=== PATIENT | male | born 1960 | race Two or more races ===

== ENCOUNTER 2016-07-27 10:39 | Emergency (ER) | payer OTHER ==
[2016-07-27 11:17] VITALS: BP 132/80
--- NOTE | 2016-07-27 11:43 | UC ---
Dental HPI - HPI Summary HPI Summary: Patient has had increase pain on the left upper jaw for about 1 week. He now has pain up under his left eye and running down to the left ear. Has had multiple teeth pulled on the left side of his jaw. - History of Current Complaint Chief Complaint: UCDentalProblem Stated Complaint: DENTAL PAIN Time Seen by Provider: 07/27/16 11:30 Hx Obtained From: Patient Onset/Duration: Sudden Onset, Lasting Days Severity: Moderate Aggravating: Chewing - Allergies/Home Medications Allergies/Adverse Reactions: Allergies Allergy/AdvReac Type Severity Reaction Status Date / Time No Known Allergies Allergy Verified 09/05/14 09:54 PMH/Surg Hx/FS Hx/Imm Hx Previously Healthy: Yes Endocrine History Of: Denies: Diabetes, Thyroid Disease Cardiovascular History Of: Denies: Cardiac Disorders, Hypertension Respiratory History Of: Denies: COPD, Asthma GI/ History Of: Denies: Ulcer - Surgical History Surgical History: Yes Surgery Procedure, Year, and Place: Cataract Surgery - Family History Known Family History: Positive: None - Social History Alcohol Use: Occasionally Substance Use Type: None Smoking Status (MU): Never Smoked Tobacco Review of Systems Skin: Negative Eyes: Negative ENT: Dental Pain, Ear Ache Respiratory: Negative Cardiovascular: Negative Gastrointestinal: Negative Genitourinary: Negative Motor: Negative Neurovascular: Negative Musculoskeletal: Negative Neurological: Headache Psychological: Negative All Other Systems Reviewed And Are Negative: Yes Physical Exam Triage Information Reviewed: Yes Appearance: Well-Appearing, Well-Nourished, Pain Distress Vital Signs: Initial Vital Signs Temp 98.2 F 07/27/16 11:12 Pulse 56 07/27/16 11:12 Resp 18 07/27/16 11:12 BP 132/80 07/27/16 11:12 Pulse Ox 98 07/27/16 11:12 Vital Signs Reviewed: Yes Eye Exam: Normal Eyes: Positive: Conjunctiva Clear Dental: Positive: Gross Decay/Caries @, Dental Fracture @, Other: - upper left jaw is red and inflammed, swollen gums, deep socket noted with a fracutred tooth. breath is odorous Neck exam: Normal Neck: Positive: Supple, Nontender, Enlarged Nodes @ - behind left ear Respiratory Exam: Normal Respiratory: Positive: Chest non-tender, Lungs clear, Normal breath sounds Cardiovascular Exam: Normal Cardiovascular: Positive: RRR, No Murmur, Pulses Normal Abdominal Exam: Normal Abdomen Description: Positive: Nontender, No Organomegaly, Soft Bowel Sounds: Positive: Present Musculoskeletal Exam: Normal Musculoskeletal: Positive: Strength Intact, ROM Intact, No Edema Neurological Exam: Normal Neurological: Positive: Alert, Muscle Tone Normal Psychological Exam: Normal Skin Exam: Normal Dental Complaint Course/Dx - Course Course Of Treatment: Hx obtained, exam performed, meds reviewed, treated for dental infection. recommend dental follow up with his dentist. - Differential Dx/Diagnosis Differential Diagnosis/Dx: Dental Abscess, Dental Caries, Fractured Tooth, Peridontic Disease Provider Diagnoses: dental caries, infected socket, mouth pain Discharge - Discharge Plan Condition: Stable Disposition: HOME Prescriptions: Amoxicillin/Clavulanate TAB* [Augmentin TAB 875*] 875 mg PO BID #20 tab Patient Education Materials: Dental Abscess (ED) Additional Instructions: Take the medication as prescribed. Continue with Ibuprofen for pain. Follow upw ith dentis in the next 2 weeks. Return if you develope any fever or increased pain.
== END 2016-07-27 11:56 | disposition home or self-care (01) ==
LOC: UCEAST 10:39
DX: K02.9 Dental caries, unspecified (principal); M27.3 Alveolitis of jaws; K13.79 Other lesions of oral mucosa; R03.0 Elevated blood-pressure reading, without diagnosis of hypertension
CPT/HCPCS: 99212; G0463

== ENCOUNTER 2016-10-16 12:01 | Emergency (ER) | payer OTHER ==
[2016-10-16 12:08] VITALS: BP 122/81
--- NOTE | 2016-10-16 14:23 | UC ---
Lower Extremity/Ankle HPI - HPI Summary HPI Summary: While mowing yesterday noticed pain and swelling in L ankle, "like I sprained my ankle," and has small open area with some redness around it. Thought maybe something came off when he brushed the area. 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 Now notices other open areas on L knee (scratched off a scab), L shoulder, and scalp. no known ticks or stings. - History of Current Complaint Chief Complaint: UCSkin Stated Complaint: TICK BITE Time Seen by Provider: 10/16/16 14:06 Hx Obtained From: Patient Onset/Duration: Gradual Onset, Lasting Hours Severity Initially: Mild Severity Currently: Mild Aggravating Factor(s): Standing, Ambulation Alleviating Factor(s): Rest Able to Bear Weight: Yes - Allergies/Home Medications Allergies/Adverse Reactions: Allergies Allergy/AdvReac Type Severity Reaction Status Date / Time No Known Allergies Allergy Verified 10/16/16 12:07 PMH/Surg Hx/FS Hx/Imm Hx Previously Healthy: Yes - Surgical History Surgical History: Yes Surgery Procedure, Year, and Place: Cataract Surgery - Family History Known Family History: Positive: None - Social History Occupation: Employed Full-time Alcohol Use: None Substance Use Type: None Smoking Status (MU): Never Smoked Tobacco Review of Systems Constitutional: Negative Skin: Other - swelling, open areas Eyes: Negative ENT: Negative Respiratory: Negative Cardiovascular: Negative Gastrointestinal: Negative Genitourinary: Negative Motor: Negative Neurovascular: Negative Musculoskeletal: Negative Neurological: Negative Psychological: Negative All Other Systems Reviewed And Are Negative: Yes Physical Exam Triage Information Reviewed: Yes Appearance: Well-Appearing, No Pain Distress, Thin Vital Signs: Initial Vital Signs Temp 99.2 F 10/16/16 12:05 Pulse 60 10/16/16 12:05 Resp 16 10/16/16 12:05 BP 122/81 10/16/16 12:05 Pulse Ox 100 10/16/16 12:05 Vital Signs Reviewed: Yes Eye Exam: Normal Eyes: Positive: Conjunctiva Clear ENT Exam: Normal ENT: Positive: Normal ENT inspection, Hearing grossly normal, Pharynx normal, TMs normal Dental Exam: Normal Neck exam: Normal Neck: Positive: Supple, Nontender, No Lymphadenopathy Respiratory Exam: Normal Respiratory: Positive: Chest non-tender, Lungs clear, Normal breath sounds, No respiratory distress, No accessory muscle use Cardiovascular Exam: Normal Cardiovascular: Positive: RRR, No Murmur Musculoskeletal Exam: Normal Musculoskeletal: Positive: Strength Intact, ROM Intact Neurological Exam: Normal Neurological: Positive: Alert Psychological Exam: Normal Skin Exam: Other - 4 round open areas 3-5mm on L lateral ankle, L knee, L posterior shoulder, and scalp. No streaking, bruising, or drainage. Minimal diffuse redness around L ankle lesion only, with marked swelling in that area as well. Lower Extremity Course/Dx - Differential Dx/Diagnosis Provider Diagnoses: Insect bites. Large local reaction to bite on L ankle Discharge - Discharge Plan Condition: Stable Disposition: HOME Prescriptions: predniSONE TAB* [Deltasone TAB*] 20 mg PO BID #4 tab Patient Education Materials: Insect Bite or Sting (ED) Referrals: No Primary Care Phys,NOPCP [Primary Care Provider] - Additional Instructions: The redness, swelling, and pain in your ankle should go down quickly with the prednisone. If you have increasing pain, redness, streaking up the leg, or other signs of worsening, please call and leave me a message (or return any time we are open).
== END 2016-10-16 14:38 | disposition home or self-care (01) ==
LOC: UCEAST 12:01
DX: S90.562A Insect bite (nonvenomous), left ankle, initial encounter (principal); W57.XXXA Bitten or stung by nonvenomous insect and other nonvenomous arthropods, initial encounter; Y93.9 Activity, unspecified; Y92.9 Unspecified place or not applicable; Y99.9 Unspecified external cause status
CPT/HCPCS: 99212; G0463

== ENCOUNTER 2017-08-25 07:07 | Emergency (ER) | payer OTHER ==
[2017-08-25 07:20] VITALS: BP 141/85
--- NOTE | 2017-08-25 08:07 | RAD ---
INDICATION: Cough COMPARISON: None TECHNIQUE: PA and lateral views of the chest were obtained. FINDINGS: The heart and mediastinum are normal in size and contour. The lungs are grossly clear. There is no evidence of large pleural effusion. Visualized bones are normal for the patient's age. There is no radiographic evidence of free air beneath the diaphragm IMPRESSION: No radiographic evidence of acute cardiopulmonary disease.
--- NOTE | 2017-08-25 12:14 | UC ---
Srini Luong Angela, scribed for Jose Kelley MD on 08/25/17 at 0738 . Respiratory Complaint HPI - HPI Summary HPI Summary: This pt is a 56 y/o male presenting to [facility] c/o intermittent productive cough for the last 6 months. 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 He describes productive cough with yellow/ green sputum. He notes these episodes are worse especially in the morning and they get better throughout the day. Denies fever, chills, chest pain, SOB. Denies any PMHx. - History of Current Complaint Chief Complaint: UCGeneralIllness Stated Complaint: COUGH,FEVER Time Seen by Provider: 08/25/17 07:09 Hx Obtained From: Patient Onset/Duration: Lasting Weeks, Still Present Timing: Intermittent Episodes Severity Currently: Moderate Pain Intensity: 0 Character: Cough: Productive, Sputum Description: - yellow/green Aggravating Factors: Other - being outside Alleviating Factors: Nothing Associated Signs And Symptoms: Negative: Fever, Chills - Allergies/Home Medications Allergies/Adverse Reactions: Allergies Allergy/AdvReac Type Severity Reaction Status Date / Time No Known Allergies Allergy Verified 08/25/17 07:20 PMH/Surg Hx/FS Hx/Imm Hx Other Endocrine History: DENIES: diabetes Other Cardiovascular History: DENIES: HTN - Surgical History Surgical History: Yes Surgery Procedure, Year, and Place: Cataract Surgery - Family History Known Family History: Negative: Cardiac Disease, Hypertension, Diabetes - Social History Alcohol Use: Occasionally Substance Use Type: None Smoking Status (MU): Never Smoked Tobacco - Immunization History Most Recent Tetanus Shot: UNK Review of Systems Constitutional: Negative Skin: Negative Eyes: Negative ENT: Negative Respiratory: Cough Cardiovascular: Negative Gastrointestinal: Negative Genitourinary: Negative Motor: Negative Neurovascular: Negative Musculoskeletal: Negative Neurological: Negative Psychological: Negative Is Patient Immunocompromised?: No All Other Systems Reviewed And Are Negative: Yes Physical Exam - Summary Physical Exam Summary: VITAL SIGNS: Reviewed. GENERAL: Patient is a well-developed and nourished male who is lying comfortable in the stretcher. Patient is not in any acute respiratory distress. HEAD AND FACE: Normocephalic EYES: PERRLA, EOMI x 2. EARS: Hearing grossly intact. MOUTH: Oropharynx within normal limits. NECK: Supple, trachea is midline, no adenopathy, no JVD, no carotid bruit. CHEST: Symmetric, no tenderness at palpation LUNGS: Clear to auscultation bilaterally. No wheezing or crackles. CVS: Regular rate and rhythm, S1 and S2 present, no murmurs or gallops appreciated. ABDOMEN: Soft, non-tender. Bowel sounds are normal. No abdominal abnormal pulsations. EXTREMITIES: Full ROM in all major joints, no edema, no cyanosis or clubbing. NEURO: Alert and oriented x 3. No acute neurological deficits. Speech is normal and follows commands. SKIN: Dry and warm Triage Information Reviewed: Yes Vital Signs: Initial Vital Signs Temp 98.2 F 08/25/17 07:15 Pulse 69 08/25/17 07:15 Resp 18 08/25/17 07:15 BP 141/85 08/25/17 07:15 Pulse Ox 98 08/25/17 07:15 Vital Signs Reviewed: Yes Diagnostic Evaluation - Laboratory O2 Sat by Pulse Oximetry: 98 - Radiology Xray Interpretation: No Acute Changes - Chest XR IMPRESSION: no radiographic evidence of acute cardiopulmonary disease. Dr. Kelley has reviewed this radiology report. Radiology Interpretation Completed By: Radiologist Re-Evaluation - Re-Evaluation First Eval Re-Evaluation Time: 08:07 Comment: I reviewed the XR results with the pt. He will be discharged home. Respiratory Course/Dx - Course Course Of Treatment: This pt is a 56 y/o male presenting to [facility] c/o intermittent productive cough for the last 6 months. 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 He describes productive cough with yellow/green sputum. He notes these episodes are worse especially in the morning and they get better throughout the day. Denies fever, chills, chest pain, SOB. Chest XR shows no radiographic evidence of acute cardiopulmonary disease. I discussed the XR results with the patient. Pt will be discharged to home with follow up from PCP. He will be given a prescription for Azithromycin. Pt was instructed to return to the urgent care or go to ER immediately if any of the symptoms return or worsens. Plan of care was discussed with the patient and pt understands and agrees. All questions were answered to patient satisfaction. Pt is hemodynamically stable, alert and oriented x3. The patient was found to have increased blood pressure in UC. The patient will follow up with PCP for better control of BP. - Differential Dx/Diagnosis Provider Diagnoses: Acute bronchitis Discharge - Sign-Out/Discharge Documenting (check all that apply): Discharge - discharge to home - Discharge Plan Condition: Stable Disposition: HOME Prescriptions: Azithromyxin JOAQUIN (NF) [Z-Joaquin (Zithromax) 250 mg tabs #6] 2 tab PO .TODAY, THEN 1 DAILY #6 tab Patient Education Materials: Acute Bronchitis (ED) Referrals: [facility] [Outside] No Primary Care Phys,NOPCP [Primary Care Provider] - Additional Instructions: FOLLOW UP WITH YOUR PRIMARY CARE PROVIDER WITHIN ONE WEEK FOR HIGH BLOOD PRESSURE NOTED TODAY. RETURN TO URGENT CARE OR THE ED FOR ANY WORSENING OR NEW SYMPTOMS. The documentation as recorded by the Srini valdez Angela accurately reflects the service I personally performed and the decisions made by me, Jose Kelley MD.
== END 2017-08-25 08:10 | disposition home or self-care (01) ==
LOC: UCEAST 07:07
DX: J20.9 Acute bronchitis, unspecified (principal)
CPT/HCPCS: 71046; 99212; G0463

== ENCOUNTER 2017-09-10 14:56 | Emergency (ER) | payer OTHER ==
[2017-09-10 15:11] VITALS: BP 126/86
--- NOTE | 2017-09-10 15:25 | UC ---
Respiratory Complaint HPI - HPI Summary HPI Summary: 56 Y/O male presents with complaint of upper respiratory congestion, body aches , fever, chills and exhaustion x 1 month. C/O increased mucous production and productive cough. Nausea and vomiting with prolonged activity. was treated August 21 for bronchitis and felt better initially but then began to have worsening respiratory symptoms. Denies dyspnea and chest pain. is eating and drinking per normal. Medical history and medications reviewed at this visit. - History of Current Complaint Chief Complaint: UCRespiratory Stated Complaint: CONGESTION, COLD Time Seen by Provider: 09/10/17 14:59 Hx Obtained From: Patient Onset/Duration: Gradual Onset, Lasting Weeks, Still Present Timing: Constant Severity Initially: Mild Severity Currently: Moderate Pain Intensity: 0 Pain Scale Used: 0-10 Numeric Character: Cough: Productive Aggravating Factors: Deep Breaths Alleviating Factors: Nothing Associated Signs And Symptoms: Positive: Fever, Chills, Wheezing, Nasal Congestion - Risk Factors Pulmonary Embolism Risk Factors: Negative Cardiac Risk Factors: Negative Pseudomonas Risk Factors: Negative Tuberculosis Risk Factors: Negative - Allergies/Home Medications Allergies/Adverse Reactions: Allergies Allergy/AdvReac Type Severity Reaction Status Date / Time No Known Allergies Allergy Verified 09/10/17 15:04 Home Medications: Home Medications Acetaminophen [Acetaminophen Extra Strength] 1 tab PO TID PRN 09/10/17 [History Confirmed 09/10/17] PMH/Surg Hx/FS Hx/Imm Hx Previously Healthy: Yes Respiratory History: Bronchitis - Surgical History Surgical History: Yes Surgery Procedure, Year, and Place: Cataract Surgery - Family History Known Family History: Positive: None Negative: Cardiac Disease, Hypertension, Diabetes - Social History Alcohol Use: Occasionally Substance Use Type: None Smoking Status (MU): Never Smoked Tobacco - Immunization History Most Recent Tetanus Shot: UNK Review of Systems Constitutional: Fever, Chills Skin: Negative Eyes: Negative ENT: Negative Respiratory: Cough Cardiovascular: Negative Gastrointestinal: Vomiting Motor: Negative Neurovascular: Negative Musculoskeletal: Negative Neurological: Negative Psychological: Negative Is Patient Immunocompromised?: No All Other Systems Reviewed And Are Negative: Yes Physical Exam Triage Information Reviewed: Yes Appearance: Thin Vital Signs: Initial Vital Signs Temp 98.7 F 09/10/17 15:06 Pulse 64 09/10/17 15:06 Resp 16 09/10/17 15:06 BP 126/86 09/10/17 15:06 Pulse Ox 99 09/10/17 15:06 Vital Signs Reviewed: Yes Eye Exam: Normal ENT Exam: Normal Neck exam: Normal Neck: Positive: No Lymphadenopathy Respiratory Exam: Other Respiratory: Positive: Rhonchi, Wheezing Cardiovascular Exam: Normal Cardiovascular: Positive: RRR Abdominal Exam: Normal Abdomen Description: Positive: Nontender Bowel Sounds: Positive: Present Musculoskeletal Exam: Normal Neurological Exam: Normal Psychological Exam: Normal Skin Exam: Normal UC Diagnostic Evaluation - Laboratory O2 Sat by Pulse Oximetry: 99 Respiratory Course/Dx - Differential Dx/Diagnosis Differential Diagnosis/HQI/PQRI: Bronchitis, Lower Resp Infection, Tuberculosis Provider Diagnoses: Upper respiratory congestion Discharge - Sign-Out/Discharge Documenting (check all that apply): Discharge/Admit/Transfer - Discharge Plan Condition: Stable Disposition: HOME Patient Education Materials: Viral Syndrome (ED) Referrals: No Primary Care Phys,NOPCP [Primary Care Provider] - Additional Instructions: Your chest x ray was negative. Consider taking Claritin or Zyrtec for allergy symptoms. You will be called when your blood work has returned. Keep your appointment with your primary medical provider. You may return to the Urgent Care as needed for continued symptoms. - Billing Disposition and Condition Condition: STABLE Disposition: HOME
--- NOTE | 2017-09-10 15:53 | RAD ---
INDICATION: Chest congestion and fever. COMPARISON: Comparison is made with prior study from August 25, 2017. TECHNIQUE: Dual-energy PA and lateral views of the chest were obtained. FINDINGS: The heart is within normal limits in size. Mediastinal and hilar contours appear within normal limits. The lungs are clear. No pleural effusion is present. IMPRESSION: NO EVIDENCE FOR ACTIVE CARDIOPULMONARY DISEASE.
[2017-09-11 13:53] LABS: ABS Basophils 0.1 10^3/ul (0-0.2); ABS Eosinophils 0.2 10^3/ul (0-0.6); ABS Lymphocytes 1.5 10^3/ul (1.0-4.8); ABS Monocytes 0.6 10^3/ul (0-0.8); ABS Neutrophils 2.5 10^3/ul (1.5-7.7); ABS Nucleated RBC 0 10^3/ul; Eosinophil % 4.6 % (0-6); Hematocrit 42 % (42-52); Hemoglobin 14.5 g/dl (14.0-18.0); Lymphocyte % 30.2 % (25-47); Mean Corpuscular HGB Conc 35 g/dl (31-36); Mean Corpuscular Hemoglobin 32 pg (27-31); Mean Corpuscular Volume 91 fL (80-94); Mean Platelet Volume 8.9 um3 (7.4-10.4); Nucleated Red Blood Cells % 0.1; Platelet Count 248 10^3/ul (150-450); Red Blood Count 4.57 10^6/ul (4.0-5.4); Red Cell Distribution Width 13 % (10.5-15); White Blood Count 4.9 10^3/ul (3.5-10.8)
== END 2017-09-10 16:11 | disposition home or self-care (01) ==
LOC: UCEAST 14:56
DX: R09.89 Other specified symptoms and signs involving the circulatory and respiratory systems (principal); M79.1 Myalgia; R50.9 Fever, unspecified; R05 Cough; R11.2 Nausea with vomiting, unspecified
CPT/HCPCS: 36415; 71046; 85025; 99211; G0463

== ENCOUNTER 2017-09-15 10:57 | Emergency (ER) | payer OTHER ==
[2017-09-15 11:07] VITALS: BP 136/82
[2017-09-15] MEDS ORDERED: DOXYcycline CAP(*) 100 MG PO ONE (11:19)
--- NOTE | 2017-09-15 12:53 | UC ---
- Progress Note Progress Note: Called from [facility] from [facility] for a CMP re-draw order from 09/10 because of specimen processing error from lab. Discharge - Sign-Out/Discharge Documenting (check all that apply): Discharge/Admit/Transfer - Discharge Plan Condition: Stable Disposition: HOME Patient Education Materials: Tick Bite (ED) Referrals: No Primary Care Phys,NOPCP [Primary Care Provider] - 3 Days Additional Instructions: Increase your fluid intake Return to the UC if symptoms worsen - Billing Disposition and Condition Condition: STABLE Disposition: HOME
--- NOTE | 2017-09-15 15:37 | UC ---
Slick Luong Nikita, scribed for Jose Kelley MD on 09/15/17 at 1113 . Skin Complaint HPI - HPI Summary HPI Summary: This patient is a 56 year old MF presenting to [facility] with a chief complaint of a tick bite since he noticed it yesterday. The patient reports he removed it on his own. The CC is described as on the L inner thigh. The patient rates the pain 2/10 in severity. Symptoms aggravated by nothing. Symptoms alleviated by nothing. Patient reports he feels much better after he finished his zpak and his sx have resolved from his dx of bronchitis 1 week ago. - History of Current Complaint Chief Complaint: UCSkin Time Seen by Provider: 09/15/17 11:08 Stated Complaint: TICK BITE Hx Obtained From: Patient Onset/Duration: Sudden Onset, Lasting Days, Still Present Skin Exposure Onset/Duration: Days Ago Onset Severity: Mild Current Severity: Mild Pain Intensity: 2 Pain Scale Used: 0-10 Numeric Location: Other - L inner thigh Aggravating Factor(s): Nothing Alleviating Factor(s): Nothing - Allergy/Home Medications Allergies/Adverse Reactions: Allergies Allergy/AdvReac Type Severity Reaction Status Date / Time No Known Allergies Allergy Verified 09/15/17 11:04 Home Medications: Home Medications NK [No Home Medications Reported] 09/15/17 [History Confirmed 09/15/17] Review of Systems Constitutional: Other - denies fever Skin: Other - tick bite on L inner thigh Respiratory: Other - Patient reports he feels much better after he finished his zpak and his sx have resolved from his dx of bronchitis 1 week ago. All Other Systems Reviewed And Are Negative: Yes PMH/Surg Hx/FS Hx/Imm Hx Cardiovascular History: Other Other Cardiovascular History: No HTN Respiratory History: Other Other Respiratory History: No asthma, COPD - Surgical History Surgical History: Yes Surgery Procedure, Year, and Place: Cataract Surgery - Family History Known Family History: Negative: Cardiac Disease, Hypertension, Diabetes - Social History Alcohol Use: Occasionally Substance Use Type: None Smoking Status (MU): Never Smoked Tobacco - Immunization History Most Recent Tetanus Shot: UNK Physical Exam - Summary Physical Exam Summary: VITAL SIGNS: Reviewed. GENERAL: ~Patient is a well-developed and nourished MALE who is lying comfortable in the stretcher. ~Patient is not in any acute respiratory distress. HEAD AND FACE: Normocephalic EYES: PERRLA, EOMI x 2. EARS: Hearing grossly intact. MOUTH: Oropharynx within normal limits. NECK: Supple, trachea is midline, no adenopathy, no JVD, no carotid bruit. CHEST: Symmetric, no tenderness at palpation LUNGS: Clear to auscultation bilaterally. No wheezing or crackles. CVS: Regular rate and rhythm, S1 and S2 present, no murmurs or gallops appreciated. ABDOMEN: Soft, non-tender. Bowel sounds are normal. No abdominal abnormal pulsations. EXTREMITIES: Full ROM in all major joints, no edema, no cyanosis or clubbing. NEURO: Alert and oriented x 3. No acute neurological deficits. Speech is normal and follows commands. SKIN: Dry and warm. Small erythematous area where he removed the tick Triage Information Reviewed: Yes Vital Signs: Initial Vital Signs Temp 97.4 F 09/15/17 11:05 Pulse 57 09/15/17 11:05 Resp 16 09/15/17 11:05 BP 136/82 09/15/17 11:05 Pulse Ox 100 09/15/17 11:05 Vital Signs Reviewed: Yes Course/Dx - Course Course Of Treatment: This patient is a 56 year old MF presenting to [facility] with a chief complaint of a tick bite since he noticed it yesterday. The pt is hemodynamically stable, alert and oriented x3. I discussed all the findings and test results with the patient. The patient will be discharged with instructions to follow up with their PCP. Patient was instructed to return to the urgent care or go to ER immediately if any of the symptoms return or worsens. The patient was found to have increased BP in UC. The patient will follow up with PCP for better control of BP. Plan of care was discussed with the patient, and patient understands and agrees. All questions were answered to patient satisfaction. There were no further complaints or concerns. - Diagnoses Provider Diagnoses: tick bite Discharge - Sign-Out/Discharge Documenting (check all that apply): Discharge/Admit/Transfer - Discharge Plan Condition: Stable Disposition: HOME Patient Education Materials: Tick Bite (ED) Referrals: No Primary Care Phys,NOPCP [Primary Care Provider] - 3 Days Additional Instructions: Increase your fluid intake Return to the UC if symptoms worsen The documentation as recorded by the Slick valdez Nikita accurately reflects the service I personally performed and the decisions made by me, Jose Kelley MD.
[2017-09-15 16:36] LABS: EGFR Non-African American 76.7 (>60)
== END 2017-09-15 11:26 | disposition home or self-care (01) ==
LOC: UCEAST 10:57
DX: S70.362A Insect bite (nonvenomous), left thigh, initial encounter (principal); W57.XXXA Bitten or stung by nonvenomous insect and other nonvenomous arthropods, initial encounter; Y93.9 Activity, unspecified; Y92.9 Unspecified place or not applicable
CPT/HCPCS: 36415; 80053; 99212; A9270-GY; G0463